=== PATIENT | female | born 1950 | race Two or more races ===

== ENCOUNTER 2017-07-18 20:06 | Emergency (ER) | payer MEDICARE, MEDICAID ==
[~2017-07-18] VITALS: Ht 149.9 cm; Wt 53.2 kg
[2017-07-18] MEDS ORDERED: HYDROcodone/acetaminophen 5mg/325mg tablet PO STA (21:57)
[2017-07-18] MEDS ORDERED: fentaNYL/PF 50MCG/1 ML 2ML syringe IV ONE (22:30)
[2017-07-18] MEDS ORDERED: ketorolac trometh. 30mg/ml inj. IV ONE (22:40)
[2017-07-18] MEDS ORDERED: propofol 10mg/ml 20ml vial IV ONE (23:20)
[2017-07-18] MEDS ORDERED: propofol 1000mg/100ml bottle 100 ML IV ONE (23:27)
[2017-07-18] MEDS ORDERED: HYDR-3965 PO (23:32)
[2017-07-19 00:45] VITALS: BP 163/88
== END 2017-07-19 00:53 | disposition home or self-care (01) ==
LOC: ER 20:06
DX: S43.004A Unspecified dislocation of right shoulder joint, initial encounter (principal); I10 Essential (primary) hypertension; F17.210 Nicotine dependence, cigarettes, uncomplicated; W01.0XXA Fall on same level from slipping, tripping and stumbling without subsequent striking against object, initial encounter; Y93.89 Activity, other specified; Y92.89 Other specified places as the place of occurrence of the external cause; Y99.8 Other external cause status
CPT/HCPCS: 23650; 73020; 73060; 94760; 96374; 96375; 99152; 99285; J1885; J2704; J3010; A4620